=== PATIENT | female | born 1930 | race Caucasian/White ===

== ENCOUNTER → 2017-01-26 | Outpatient (CLI) | payer MEDICARE ==
[~2017-01-26] MED LIST: ALBU8.5H3 PO; ALLO100T30 PO; ATEN100T PO; ATEN50TA41; CEPH-367 PO; DOXY100C26; ESTR42.53 TP; FEXO180T72 PO; FLUT12AE INH; FURO20TA3 PO; FURO40TA6 PO; GABA600T PO; HYDR-3138 PO; LEVO88TA4 PO; LIDOCAINE 2% TP; NITR100C57; POTA10TA5 PO; SENN8.6T98 PO; TRAM100T13 PO; TRAZ100T15 PO; VALS80TA3 PO; WARF2.5T73 PO; WARF5TAB PO
== END | disposition home or self-care (01) ==
LOC: LAB 12:47
PROVIDERS: ATTEND Nurse Practitioner Family
DX: I48.2 Chronic atrial fibrillation (principal)
CPT/HCPCS: 36415; 85610

== ENCOUNTER → 2017-03-09 | Outpatient (CLI) | payer MEDICARE ==
[2017-03-09 14:04] LABS: ASPARTATE AMINO TRANSFERASE 20 U/L (15-37); BLOOD UREA NITROGEN 32 mg/dL (7-18)
== END | disposition home or self-care (01) ==
LOC: LAB 12:23
PROVIDERS: ATTEND Internal Medicine Cardiovascular Disease
DX: E03.9 Hypothyroidism, unspecified (principal); G47.33 Obstructive sleep apnea (adult) (pediatric); I10 Essential (primary) hypertension; I34.0 Nonrheumatic mitral (valve) insufficiency; I48.2 Chronic atrial fibrillation
CPT/HCPCS: 36415; 80053; 80061; 81003; 82306; 83036; 84443; 85025; 85610

== ENCOUNTER → 2017-03-14 | Outpatient (CLI) | payer MEDICARE | END | disposition home or self-care (01) | LOC: CFH 15:08 | PROVIDERS: ATTEND Internal Medicine Cardiovascular Disease | DX: I51.7 Cardiomegaly (principal); I50.30 Unspecified diastolic (congestive) heart failure; I48.2 Chronic atrial fibrillation; Z98.890 Other specified postprocedural states | CPT/HCPCS: 36415; 71020; 83880 ==

== ENCOUNTER → 2017-04-11 | Outpatient (CLI) | payer MEDICARE | END | disposition home or self-care (01) | LOC: LAB 15:19 | PROVIDERS: ATTEND Internal Medicine Cardiovascular Disease | DX: I48.2 Chronic atrial fibrillation (principal) | CPT/HCPCS: 36415; 85610 ==

== ENCOUNTER → 2017-04-18 | Outpatient (CLI) | payer MEDICARE ==
[2017-04-18 14:34] LABS: BLOOD UREA NITROGEN 46 mg/dL (7-18)
== END | disposition home or self-care (01) ==
LOC: LAB 14:02
PROVIDERS: ATTEND Internal Medicine Cardiovascular Disease
DX: R06.02 Shortness of breath (principal)
CPT/HCPCS: 36415; 80048

== ENCOUNTER → 2017-05-23 | Outpatient (CLI) | payer MEDICARE | END | disposition home or self-care (01) | LOC: LAB 14:06 | PROVIDERS: ATTEND Internal Medicine Cardiovascular Disease | DX: I48.2 Chronic atrial fibrillation (principal) | CPT/HCPCS: 36415; 85610 ==

== ENCOUNTER → 2017-06-21 | Outpatient (CLI) | payer MEDICARE | END | disposition home or self-care (01) | LOC: CFH 14:08 | PROVIDERS: ATTEND Internal Medicine | DX: Z13.820 Encounter for screening for osteoporosis (principal); M85.88 Other specified disorders of bone density and structure, other site; N95.9 Unspecified menopausal and perimenopausal disorder | CPT/HCPCS: 77080 ==

== ENCOUNTER → 2017-06-21 | Outpatient (CLI) | payer MEDICARE ==
[~2017-06-21] MED LIST changes: -HYDR-3138 PO; +HYDR-3237 PO
[2017-06-21 12:35] LABS: PTH INTACT INTERPRETATION ** Comment **
[2017-06-21 12:56] LABS: PATH.CAST-FLAG NOT PRESENT; SPERM-FLAG NOT PRESENT; SRC-FLAG NOT PRESENT; XTAL-FLAG NOT PRESENT; YLC-FLAG NOT PRESENT
[2017-06-21 12:56] LABS: HEMATOCRIT 41.2 % (34.6-47.8); HEMOGLOBIN 13.7 g/dL (11.7-16.4); WHITE BLOOD COUNT 5.1 x10^3/uL (3.4-10)
[2017-06-21 13:11] LABS: FERRITIN 505.3 ng/mL (8-252)
[2017-06-21 13:17] LABS: BLOOD UREA NITROGEN 41 mg/dL (7-18)
[2017-06-21 13:17] LABS: PARATHYROID HORMONE INTACT 161.6 pg/mL (14-72)
[2017-06-21 13:28] LABS: ASPARTATE AMINO TRANSFERASE 29 U/L (15-37)
== END | disposition home or self-care (01) ==
LOC: LAB 12:28
PROVIDERS: ATTEND Internal Medicine Cardiovascular Disease
DX: E03.9 Hypothyroidism, unspecified (principal); I12.9 Hypertensive chronic kidney disease with stage 1 through stage 4 chronic kidney disease, or unspecified chronic kidney disease; D63.1 Anemia in chronic kidney disease; N18.3 Chronic kidney disease, stage 3 (moderate); I34.0 Nonrheumatic mitral (valve) insufficiency; I48.2 Chronic atrial fibrillation; M10.9 Gout, unspecified; R06.02 Shortness of breath; G47.30 Sleep apnea, unspecified; E66.01 Morbid (severe) obesity due to excess calories; E83.40 Disorders of magnesium metabolism, unspecified; R80.9 Proteinuria, unspecified; E21.3 Hyperparathyroidism, unspecified; E55.9 Vitamin D deficiency, unspecified
CPT/HCPCS: 36415; 80053; 80061; 81001; 82306; 82310; 82570; 82728; 83540; 83550; 83735; 83970; 84100; 84156; 84443; 84550; 85025; 85610

== ENCOUNTER → 2017-08-03 | Outpatient (CLI) | payer MEDICARE ==
[~2017-08-03] MED LIST changes: -ALBU8.5H3 PO; +ALBU8.5H8 PO
== END | disposition home or self-care (01) ==
LOC: LAB 12:14
PROVIDERS: ATTEND Internal Medicine Cardiovascular Disease
DX: I48.2 Chronic atrial fibrillation (principal)
CPT/HCPCS: 36415; 85610

== ENCOUNTER 2017-09-16 06:08 | Inpatient (IN) | payer MEDICARE ==
[~2017-09-16] VITALS: Ht 170.2 cm; Wt 125.6 kg
[2017-09-16] MEDS ORDERED: ASPIRIN 81 MG TABLET CHEW ONE (06:45)
[2017-09-16] MEDS ORDERED: ONDANSETRON 2MG/ML, 2ML ONE (06:45)
[2017-09-16] MEDS ORDERED: morphine SULFATE 10 MG/ML, 1ML ONE (06:45)
[2017-09-16] MEDS ORDERED: SODIUM CHLORIDE FLUSH 10ML SYR IVF ONE (07:00)
[2017-09-16] MEDS ORDERED: ONDANSETRON 2MG/ML, 2ML IVPush ONE (07:00)
[2017-09-16] MEDS ORDERED: ASPIRIN 81 MG TABLET CHEW PO ONE (07:00)
[2017-09-16] MEDS ORDERED: morphine SULFATE 10 MG/ML, 1ML IVPush ONE (07:00)
[2017-09-16 07:07] LABS: HEMATOCRIT 39.6 % (34.6-47.8); HEMOGLOBIN 13.3 g/dL (11.7-16.4); WHITE BLOOD COUNT 9.3 x10^3/uL (3.4-10)
[2017-09-16 07:13] LABS: ASPARTATE AMINO TRANSFERASE 23 U/L (15-37); BLOOD UREA NITROGEN 36 mg/dL (7-18)
[2017-09-16] MEDS ORDERED: CALC0.25 PO (07:15)
[2017-09-16] MEDS ORDERED: ACET-76 PO (07:15)
[2017-09-16] MEDS ORDERED: FERR324T8 PO (07:19)
[2017-09-16] MEDS ORDERED: WHEA1POW5 PO (07:19)
[2017-09-16] MEDS ORDERED: CRAN1CAP12 PO (07:19)
[2017-09-16] MEDS ORDERED: CHOL200074 PO (07:19)
[2017-09-16] MEDS ORDERED: NIAC500T85 PO (07:19)
[2017-09-16] MEDS ORDERED: MAGN84TA6 PO (07:19)
[2017-09-16 07:28] LABS: IS PT STATUS REG ER OR PRE ER? YES
[2017-09-16] MEDS ORDERED: MAALOX/HYOSCYAMINE/LIDOCAINE 45 ML BTL PO ONE (08:00)
[2017-09-16] MEDS ORDERED: MAALOX/HYOSCYAMINE/LIDOCAINE 45 ML BTL ONE (08:17)
[2017-09-16 09:25] VITALS: BP 125/92
[2017-09-16] MEDS ORDERED: PHARMACY MAY ADJ FOR RENAL FX MC PRN (11:00)
[2017-09-16] MEDS ORDERED: MAALOX/HYOSCYAMINE/LIDOCAINE 45 ML BTL PO PRN (11:00)
[2017-09-16] MEDS ORDERED: ONDANSETRON ODT 4 MG PO PRN (11:00)
[2017-09-16] MEDS ORDERED: NITROGLYCERIN 0.4 MG BOTTLE (25 TABS) SL PRN (11:00)
[2017-09-16] MEDS ORDERED: ONDANSETRON 2MG/ML, 2ML IVPush PRN (11:00)
[2017-09-16] MEDS ORDERED: BISACODYL 10 MG SUPP PR PRN (11:00)
[2017-09-16] MEDS ORDERED: morphine SULFATE 10 MG/ML, 1ML IVPush PRN (11:00)
[2017-09-16] MEDS ORDERED: DOCUSATE 100 MG CAPSULE PO PRN (11:00)
[2017-09-16 11:55] LABS: C-REACTIVE PROTEIN, QUANT 3.8 mg/dL (0.02-0.49)
[2017-09-16 11:57] LABS: IS PT STATUS REG ER OR PRE ER? NO
[2017-09-16] MEDS: PANTOPRAZOLE 40 MG IV IVPush SCH (12:46)
[2017-09-16] MEDS: ESTRADIOL MC SCH ×2 (13:24→19:30)
[2017-09-16] MEDS: METHOCARBAMOL 500 MG TABLET PO SCH ×3 (13:24→21:42)
[2017-09-16 15:40] VITALS: BP 121/70
[2017-09-16] MEDS: CEFTRIAXONE PMX 1GM/50ML 50 ML IV SCH (17:51)
[2017-09-16] MEDS ORDERED: WARFARIN 3 MG TABLET PO-COUM SCH (18:00)
[2017-09-16] MEDS ORDERED: ALBUTEROL SULFATE 2.5 MG/3 ML NPPB PRN (18:30)
[2017-09-16 18:51] VITALS: BP 116/72
[2017-09-16 19:30] LABS: IS PT STATUS REG ER OR PRE ER? NO
[2017-09-16] MEDS: POTASSIUM CHLORIDE 10 MEQ TABLET.ER PO SCH (21:00)
[2017-09-16] MEDS ORDERED: FUROSEMIDE 20 MG TABLET PO SCH (21:00)
[2017-09-16] MEDS: SODIUM CHLORIDE FLUSH 10ML SYR IVF SCH (21:42)
[2017-09-16] MEDS: GABAPENTIN 300 MG CAPSULE PO SCH (21:42)
[2017-09-16] MEDS: ASCORBIC ACID 500 MG TABLET PO SCH (21:42)
[2017-09-17] MEDS: PANTOPRAZOLE 40 MG IV IVPush SCH ×2 (00:33→12:55)
[2017-09-17 03:11] VITALS: BP 114/73
[2017-09-17] MEDS: ASPIRIN 325 MG TABLET EC PO SCH ×2 (05:21→10:44)
[2017-09-17] MEDS: METHOCARBAMOL 500 MG TABLET PO SCH ×4 (05:22→21:48)
[2017-09-17 05:30] LABS: HEMATOCRIT 38.6 % (34.6-47.8); WHITE BLOOD COUNT 14.5 x10^3/uL (3.4-10)
[2017-09-17 05:31] LABS: ASPARTATE AMINO TRANSFERASE 18 U/L (15-37); BLOOD UREA NITROGEN 42 mg/dL (7-18)
[2017-09-17 07:32] VITALS: BP 123/73
[2017-09-17] MEDS ORDERED: REGADENOSON 0.4 MG/5 ML SYRINGE ONE (08:12)
[2017-09-17] MEDS ORDERED: LORATADINE 10 MG TABLET PO SCH (09:00)
[2017-09-17] MEDS ORDERED: CEPHALEXIN 250 MG CAPSULE PO SCH (09:00)
[2017-09-17] MEDS ORDERED: METOPROLOL TARTRATE 50 MG TABLET PO SCH (09:00)
[2017-09-17] MEDS ORDERED: FUROSEMIDE 40 MG TABLET PO SCH (09:00)
[2017-09-17] MEDS ORDERED: ATENOLOL 100 MG TABLET PO SCH (09:00)
[2017-09-17] MEDS: CHOLECALCIFEROL 1,000 UNIT TABLET PO SCH (10:44)
[2017-09-17] MEDS: GABAPENTIN 300 MG CAPSULE PO SCH ×2 (10:44→21:48)
[2017-09-17] MEDS: ASCORBIC ACID 500 MG TABLET PO SCH ×2 (10:44→21:48)
[2017-09-17] MEDS: ALLOPURINOL 100 MG TABLET PO SCH (10:45)
[2017-09-17] MEDS: FERROUS SULFATE 325 MG TABLET PO SCH (10:45)
[2017-09-17] MEDS: LEVOTHYROXINE 88 MCG TABLET PO SCH (10:46)
[2017-09-17] MEDS: SODIUM CHLORIDE FLUSH 10ML SYR IVF SCH ×2 (10:47→21:47)
[2017-09-17] MEDS: POTASSIUM CHLORIDE 10 MEQ TABLET.ER PO SCH ×2 (10:47→21:47)
[2017-09-17] MEDS: MAGNESIUM OXIDE 400 MG TABLET PO SCH ×2 (10:51→21:48)
[2017-09-17 10:53] VITALS: BP 95/53
[2017-09-17] MEDS: PSYLLIUM PACKET PO SCH (11:56)
[2017-09-17] MEDS: FUROSEMIDE 40 MG/4 ML IV SCH (12:55)
[2017-09-17] MEDS: FLUTICASONE FUROATE 100MCG/INH INH SCH (12:55)
[2017-09-17 14:16] VITALS: BP 97/65
[2017-09-17] MEDS: CEFTRIAXONE PMX 1GM/50ML 50 ML IV SCH (17:48)
[2017-09-17] MEDS ORDERED: WARFARIN 3 MG TABLET PO-COUM SCH (18:00)
[2017-09-17 19:16] VITALS: BP 104/71
[2017-09-17] MEDS: METOPROLOL TARTRATE 25 MG TABLET PO SCH (21:48)
[2017-09-18] MEDS: PANTOPRAZOLE 40 MG IV IVPush SCH ×2 (00:44→12:08)
[2017-09-18 02:36] VITALS: BP 105/70
[2017-09-18] MEDS: LEVOTHYROXINE 88 MCG TABLET PO SCH (06:00)
[2017-09-18] MEDS: METHOCARBAMOL 500 MG TABLET PO SCH ×4 (06:06→20:22)
[2017-09-18] MEDS: METOPROLOL TARTRATE 25 MG TABLET PO SCH ×2 (06:06→17:19)
[2017-09-18 08:00] VITALS: BP 120/75
[2017-09-18 08:00] LABS: HEMATOCRIT 35.7 % (34.6-47.8); HEMOGLOBIN 12.1 g/dL (11.7-16.4); WHITE BLOOD COUNT 11.6 x10^3/uL (3.4-10)
[2017-09-18 08:11] LABS: BLOOD UREA NITROGEN 52 mg/dL (7-18)
[2017-09-18] MEDS ORDERED: ACETAMINOPHEN 325 MG TABLET ONE (09:35)
[2017-09-18] MEDS: FUROSEMIDE 40 MG/4 ML IV SCH (09:42)
[2017-09-18] MEDS: SODIUM CHLORIDE FLUSH 10ML SYR IVF SCH ×2 (09:42→20:20)
[2017-09-18] MEDS: FLUTICASONE FUROATE 100MCG/INH INH SCH (09:47)
[2017-09-18] MEDS: MAGNESIUM OXIDE 400 MG TABLET PO SCH ×2 (09:49→20:21)
[2017-09-18] MEDS: POTASSIUM CHLORIDE 10 MEQ TABLET.ER PO SCH ×2 (09:49→20:20)
[2017-09-18] MEDS: CALCITRIOL 0.25 MCG CAPSULE PO SCH (09:49)
[2017-09-18] MEDS: ASCORBIC ACID 500 MG TABLET PO SCH ×2 (09:49→20:22)
[2017-09-18] MEDS: GABAPENTIN 300 MG CAPSULE PO SCH ×2 (09:50→20:21)
[2017-09-18] MEDS: CHOLECALCIFEROL 1,000 UNIT TABLET PO SCH (09:51)
[2017-09-18] MEDS: ALLOPURINOL 100 MG TABLET PO SCH (09:51)
[2017-09-18] MEDS: ACETAMINOPHEN 500 MG TABLET PO PRN (09:53)
[2017-09-18] MEDS: PSYLLIUM PACKET PO SCH (09:56)
[2017-09-18] MEDS: FERROUS SULFATE 325 MG TABLET PO SCH (12:06)
[2017-09-18] MEDS ORDERED: HOLD COUMADIN MC PRN (14:30)
[2017-09-18 15:17] VITALS: BP 115/72
[2017-09-18 15:30] VITALS: BP 99/65
[2017-09-18] MEDS: CEFTRIAXONE PMX 1GM/50ML 50 ML IV SCH (17:19)
[2017-09-18 17:25] VITALS: BP 122/64
[2017-09-18 18:36] VITALS: BP 103/67
[2017-09-18] MEDS: GUAIFENESIN 200 MG TABLET PO SCH (20:21)
[2017-09-19] MEDS: PANTOPRAZOLE 40 MG IV IVPush SCH ×2 (00:10→11:42)
[2017-09-19 01:00] VITALS: BP 108/73
[2017-09-19 05:16] LABS: HEMATOCRIT 35.6 % (34.6-47.8); HEMOGLOBIN 11.8 g/dL (11.7-16.4); WHITE BLOOD COUNT 9.4 x10^3/uL (3.4-10)
[2017-09-19 05:19] LABS: ASPARTATE AMINO TRANSFERASE 32 U/L (15-37); BLOOD UREA NITROGEN 56 mg/dL (7-18)
[2017-09-19 05:44] VITALS: BP 123/54
[2017-09-19] MEDS: ASPIRIN 81 MG TABLET EC PO SCH (05:47)
[2017-09-19] MEDS: GUAIFENESIN 200 MG TABLET PO SCH ×4 (05:48→21:23)
[2017-09-19] MEDS: LEVOTHYROXINE 88 MCG TABLET PO SCH (05:48)
[2017-09-19] MEDS: METHOCARBAMOL 500 MG TABLET PO SCH ×4 (05:48→21:23)
[2017-09-19] MEDS: METOPROLOL TARTRATE 25 MG TABLET PO SCH ×2 (05:48→17:40)
[2017-09-19] MEDS ORDERED: PHYTONADIONE 10 MG in SODIUM CHLORIDE 0.9% 50 ML IV ONE (06:00)
[2017-09-19] MEDS ORDERED: HOLD COUMADIN MC PRN (08:00)
[2017-09-19 08:50] VITALS: BP 134/82
[2017-09-19] MEDS ORDERED: ESTRACE VAG HOMEVAG SCH (09:00)
[2017-09-19] MEDS ORDERED: ACETAMINOPHEN 325 MG TABLET ONE (09:57)
[2017-09-19] MEDS: FLUTICASONE FUROATE 100MCG/INH INH SCH (10:14)
[2017-09-19] MEDS: FUROSEMIDE 40 MG/4 ML IV SCH (10:19)
[2017-09-19] MEDS: SODIUM CHLORIDE FLUSH 10ML SYR IVF SCH ×2 (10:22→21:24)
[2017-09-19] MEDS: GABAPENTIN 300 MG CAPSULE PO SCH ×2 (10:22→21:23)
[2017-09-19] MEDS: CHOLECALCIFEROL 1,000 UNIT TABLET PO SCH (10:22)
[2017-09-19] MEDS: ALLOPURINOL 100 MG TABLET PO SCH (10:22)
[2017-09-19] MEDS: MAGNESIUM OXIDE 400 MG TABLET PO SCH ×2 (10:23→21:23)
[2017-09-19] MEDS: ASCORBIC ACID 500 MG TABLET PO SCH ×2 (10:23→21:23)
[2017-09-19] MEDS: POTASSIUM CHLORIDE 10 MEQ TABLET.ER PO SCH ×2 (10:23→21:23)
[2017-09-19] MEDS: PSYLLIUM PACKET PO SCH (10:27)
[2017-09-19] MEDS: ACETAMINOPHEN 500 MG TABLET PO PRN (10:28)
[2017-09-19] MEDS: FERROUS SULFATE 325 MG TABLET PO SCH (10:37)
[2017-09-19 13:57] VITALS: BP 110/73
[2017-09-19] MEDS: CEFTRIAXONE PMX 1GM/50ML 50 ML IV SCH (14:54)
[2017-09-19 19:18] VITALS: BP 106/74
[2017-09-20 00:27] VITALS: BP 125/81
[2017-09-20] MEDS: PANTOPRAZOLE 40 MG IV IVPush SCH (01:25)
[2017-09-20 04:53] LABS: HEMATOCRIT 36.3 % (34.6-47.8); HEMOGLOBIN 12.1 g/dL (11.7-16.4); WHITE BLOOD COUNT 8.3 x10^3/uL (3.4-10)
[2017-09-20 05:11] LABS: ASPARTATE AMINO TRANSFERASE 27 U/L (15-37); BLOOD UREA NITROGEN 59 mg/dL (7-18)
[2017-09-20] MEDS: LEVOTHYROXINE 88 MCG TABLET PO SCH (06:00)
[2017-09-20 06:32] VITALS: BP 129/87
[2017-09-20] MEDS: GUAIFENESIN 200 MG TABLET PO SCH ×3 (06:41→16:25)
[2017-09-20] MEDS: METHOCARBAMOL 500 MG TABLET PO SCH ×3 (06:42→16:25)
[2017-09-20] MEDS: ASPIRIN 81 MG TABLET EC PO SCH (06:42)
[2017-09-20] MEDS: METOPROLOL TARTRATE 25 MG TABLET PO SCH ×2 (06:42→17:47)
[2017-09-20] MEDS: FLUTICASONE FUROATE 100MCG/INH INH SCH (08:12)
[2017-09-20] MEDS: CALCITRIOL 0.25 MCG CAPSULE PO SCH (08:13)
[2017-09-20] MEDS: FERROUS SULFATE 325 MG TABLET PO SCH (08:13)
[2017-09-20] MEDS: ASCORBIC ACID 500 MG TABLET PO SCH (08:13)
[2017-09-20] MEDS: GABAPENTIN 300 MG CAPSULE PO SCH (08:14)
[2017-09-20] MEDS: POTASSIUM CHLORIDE 10 MEQ TABLET.ER PO SCH (08:14)
[2017-09-20] MEDS: CHOLECALCIFEROL 1,000 UNIT TABLET PO SCH (08:14)
[2017-09-20] MEDS: SODIUM CHLORIDE FLUSH 10ML SYR IVF SCH (08:14)
[2017-09-20] MEDS: ALLOPURINOL 100 MG TABLET PO SCH (08:14)
[2017-09-20] MEDS: FUROSEMIDE 40 MG/4 ML IV SCH (08:15)
[2017-09-20] MEDS: PSYLLIUM PACKET PO SCH (08:16)
[2017-09-20] MEDS: MAGNESIUM OXIDE 400 MG TABLET PO SCH (08:32)
[2017-09-20] MEDS ORDERED: PANTOPROZOLE 40MG TABLET PO SCH (12:30)
[2017-09-20] MEDS: CEFTRIAXONE PMX 1GM/50ML 50 ML IV SCH (14:38)
[2017-09-20] MEDS ORDERED: GUAI200T3 PO (14:58)
[2017-09-20] MEDS ORDERED: METO25TA35 PO (14:58)
[2017-09-20] MEDS ORDERED: PANT40TA5 PO (14:58)
[2017-09-20] MEDS ORDERED: CEFD300C37 PO (14:59)
[2017-09-20 15:23] VITALS: BP 131/81
[2017-09-20] MEDS ORDERED: WARFARIN 5 MG TABLET PO-COUM ONE (18:00)
[2017-09-21] MEDS ORDERED: SULF1TAB24 PO (09:50)
== END 2017-09-20 18:00 | disposition home health service (06) | DRG 291 ==
LOC: ED 06:18 → EDIP 07:44 → 5SO 09:07
PROVIDERS: ADMIT Internal Medicine; ATTEND Internal Medicine
PROC: 5A09357 Assistance with Respiratory Ventilation, Less than 24 Consecutive Hours, Continuous Positive Airway Pressure (ICD-10-PCS; principal; 2017-09-17)
PROC: 5A09357 Assistance with Respiratory Ventilation, Less than 24 Consecutive Hours, Continuous Positive Airway Pressure (ICD-10-PCS; 2017-09-19)
DX: I13.0 Hypertensive heart and chronic kidney disease with heart failure and stage 1 through stage 4 chronic kidney disease, or unspecified chronic kidney disease (principal); J96.01 Acute respiratory failure with hypoxia; I71.00 Dissection of unspecified site of aorta; E44.0 Moderate protein-calorie malnutrition; D68.59 Other primary thrombophilia; G62.9 Polyneuropathy, unspecified; N18.4 Chronic kidney disease, stage 4 (severe); E66.01 Morbid (severe) obesity due to excess calories; I27.20 Pulmonary hypertension, unspecified; I50.30 Unspecified diastolic (congestive) heart failure; Z68.41 Body mass index [BMI] 40.0-44.9, adult; R07.89 Other chest pain; I48.2 Chronic atrial fibrillation; I08.1 Rheumatic disorders of both mitral and tricuspid valves; E78.5 Hyperlipidemia, unspecified; E03.9 Hypothyroidism, unspecified; J44.9 Chronic obstructive pulmonary disease, unspecified; D50.9 Iron deficiency anemia, unspecified; L30.9 Dermatitis, unspecified; M10.9 Gout, unspecified; M19.90 Unspecified osteoarthritis, unspecified site; Z66 Do not resuscitate; I35.1 Nonrheumatic aortic (valve) insufficiency; Z77.22 Contact with and (suspected) exposure to environmental tobacco smoke (acute) (chronic); D72.829 Elevated white blood cell count, unspecified; G47.33 Obstructive sleep apnea (adult) (pediatric); Z86.73 Personal history of transient ischemic attack (TIA), and cerebral infarction without residual deficits; Z79.01 Long term (current) use of anticoagulants; Z79.82 Long term (current) use of aspirin; Z79.899 Other long term (current) drug therapy; Z87.440 Personal history of urinary (tract) infections
CPT/HCPCS: 36415; 71010; 78452; 80048; 80053; 80061; 81001; 82040; 83605; 83735; 83880; 84443; 84484; 85025; 85610; 85651; 86140; 86677; 87077; 87086; 87186; 93005; 93017; 93306; 93922; 96374; 96375; J0696; J1940; J2405; J2785; J3430; A9502; C9113; C9898; J2270

== ENCOUNTER → 2017-09-23 | Outpatient (CLI) | payer MEDICARE ==
[~2017-09-23] MED LIST changes: +ACET-76 PO; +CALC0.25 PO; +CEFD300C37 PO; +CHOL200074 PO; +CRAN1CAP12 PO; +FERR324T8 PO; +GUAI200T3 PO; +MAGN84TA6 PO; +METO25TA35 PO; +NIAC500T85 PO; +PANT40TA5 PO; +SULF1TAB24 PO; +WHEA1POW5 PO
[2017-09-23 15:22] LABS: BLOOD UREA NITROGEN 33 mg/dL (7-18)
== END | disposition home or self-care (01) ==
LOC: LAB 14:39
PROVIDERS: ATTEND Hospitalist
DX: Z00.01 Encounter for general adult medical examination with abnormal findings (principal)
CPT/HCPCS: 36415; 80048; 83735

== ENCOUNTER → 2017-11-21 | Outpatient (CLI) | payer MEDICARE ==
[~2017-11-21] MED LIST changes: +ASPI325T17 PO
== END | disposition home or self-care (01) ==
LOC: CFH 11:49
PROVIDERS: ATTEND Nurse Practitioner
DX: J90 Pleural effusion, not elsewhere classified (principal)
CPT/HCPCS: 71046

== ENCOUNTER → 2017-11-29 | Outpatient (CLI) | payer MEDICARE ==
[2017-11-29 15:05] LABS: BASOPHILS # (AUTO) 0.02 x10^3/uL (0-0.1); BASOPHILS % (AUTO) 0 % (0-1); EOSINOPHILS # (AUTO) 0.15 x10^3/uL (0-0.4); EOSINOPHILS % (AUTO) 2 % (1-7); LYMPHOCYTES # (AUTO) 1.18 x10^3/uL (1-3.4); LYMPHOCYTES % (AUTO) 15 % (22-44); MD NO; MEAN CORPUSCULAR HEMOGLOBIN 32.1 pg (27.0-34.8); MEAN CORPUSCULAR HGB CONC 31.8 g/dL (32.4-35.8); MEAN PLATELET VOLUME 8.3 fL (7.4-10.4); MONOCYTES # (AUTO) 0.56 x10^3/uL (0.2-0.8); MONOCYTES % (AUTO) 7 % (2-9); NEUTROPHILS % (AUTO) 76 % (42-75); PLATELET COUNT 315 x10^3/uL (130-400); RED BLOOD COUNT 3.72 x10^6/uL (3.82-5.3); RED CELL DISTRIBUTION WIDTH 16.5 % (9.6-15.2)
[2017-11-29 15:13] LABS: MICROSCOPIC INDICATED
[2017-11-29 15:17] LABS: CALCIUM 10.2 mg/dL (8.5-10.1)
[2017-11-29 15:18] LABS: ANION GAP 9 mmol/L (5-15); CALCIUM 9.7 mg/dL (8.5-10.1); CHLORIDE 98 mmol/L (98-107)
[2017-11-29 15:23] LABS: ALANINE AMINOTRANSFERASE 12 U/L (12-78); ALKALINE PHOSPHATASE 74 U/L (45-117); BILIRUBIN,TOTAL 0.7 mg/dL (0.2-1.0); TOTAL PROTEIN 8.5 g/dL (6.4-8.2)
[2017-11-29 15:36] LABS: CREATININE,URINE RANDOM 82.4 mg/dL
== END | disposition home or self-care (01) ==
LOC: LAB 13:44
PROVIDERS: ATTEND Nurse Practitioner
DX: E21.3 Hyperparathyroidism, unspecified (principal); D64.9 Anemia, unspecified; I25.10 Atherosclerotic heart disease of native coronary artery without angina pectoris; I13.0 Hypertensive heart and chronic kidney disease with heart failure and stage 1 through stage 4 chronic kidney disease, or unspecified chronic kidney disease; I50.9 Heart failure, unspecified; N18.3 Chronic kidney disease, stage 3 (moderate); M19.90 Unspecified osteoarthritis, unspecified site; R80.9 Proteinuria, unspecified; I48.0 Paroxysmal atrial fibrillation; Z79.01 Long term (current) use of anticoagulants; E03.9 Hypothyroidism, unspecified; E55.9 Vitamin D deficiency, unspecified; G47.33 Obstructive sleep apnea (adult) (pediatric); I63.9 Cerebral infarction, unspecified; M10.9 Gout, unspecified; I73.9 Peripheral vascular disease, unspecified
CPT/HCPCS: 36415; 80053; 81001; 82306; 82310; 82570; 83735; 83970; 84100; 84156; 84550; 85025

== ENCOUNTER → 2018-01-16 | Outpatient (CLI) | payer MEDICARE ==
[2018-01-16 15:28] LABS: ALANINE AMINOTRANSFERASE 12 U/L (12-78); ALBUMIN 3.4 g/dL (3.4-5.0); ANION GAP 6 mmol/L (5-15); CHLORIDE 102 mmol/L (98-107); CREATININE 1.33 mg/dL (0.55-1.02)
[2018-01-16 15:30] LABS: ALKALINE PHOSPHATASE 61 U/L (45-117); BILIRUBIN,TOTAL 0.6 mg/dL (0.2-1.0); TOTAL PROTEIN 8.8 g/dL (6.4-8.2)
== END | disposition home or self-care (01) ==
LOC: LAB 14:49 → EDBD 14:49
PROVIDERS: ATTEND Internal Medicine
DX: E03.9 Hypothyroidism, unspecified (principal); G47.33 Obstructive sleep apnea (adult) (pediatric); I10 Essential (primary) hypertension; I34.0 Nonrheumatic mitral (valve) insufficiency; I48.2 Chronic atrial fibrillation
CPT/HCPCS: 36415; 80053

== ENCOUNTER → 2018-01-17 | Outpatient (CLI) | payer MEDICARE | END | disposition home or self-care (01) | LOC: CFH 12:46 | PROVIDERS: ATTEND Nurse Practitioner Family | DX: J90 Pleural effusion, not elsewhere classified (principal); I10 Essential (primary) hypertension; I48.2 Chronic atrial fibrillation; I51.7 Cardiomegaly | CPT/HCPCS: 71046 ==

== ENCOUNTER → 2018-05-01 | Outpatient (CLI) | payer MEDICARE ==
[~2018-05-01] MED LIST changes: +OMNIPAQUE 350 MG/ML, 150 ML BOTTLE ONE
== END | disposition home or self-care (01) ==
LOC: CFH 09:25
PROVIDERS: ATTEND Nurse Practitioner Family
DX: N28.1 Cyst of kidney, acquired (principal); I70.0 Atherosclerosis of aorta; R91.1 Solitary pulmonary nodule; K76.0 Fatty (change of) liver, not elsewhere classified; E11.22 Type 2 diabetes mellitus with diabetic chronic kidney disease; N18.3 Chronic kidney disease, stage 3 (moderate); I50.9 Heart failure, unspecified
CPT/HCPCS: 74177; 82565; Q9967

== ENCOUNTER → 2018-08-07 | Outpatient (CLI) | payer MEDICARE ==
[~2018-08-07] MED LIST changes: -OMNIPAQUE 350 MG/ML, 150 ML BOTTLE ONE; +TRAZ-137 PO; -TRAZ100T15 PO
[2018-08-07 09:53] LABS: ALANINE AMINOTRANSFERASE 27 U/L (12-78); ALBUMIN 3.6 g/dL (3.4-5.0); ANION GAP 5 mmol/L (5-15); CALCIUM 9.8 mg/dL (8.5-10.1); CHLORIDE 105 mmol/L (98-107); CREATININE 1.46 mg/dL (0.55-1.02)
[2018-08-07 10:05] LABS: ALKALINE PHOSPHATASE 91 U/L (45-117); BILIRUBIN,TOTAL 0.7 mg/dL (0.2-1.0); CHOL/HDL RATIO 2.2; CHOLESTEROL, TOTAL 128 mg/dL (140-239); HDL CHOL % 46 % (28-40); HDL CHOLESTEROL (DIRECT) 59 mg/dL (40-60); LDL CHOLESTEROL,CALCULATED 53 mg/dL (54-169); LDL/HDL RATIO 0.9 (0.5-3.0); TOTAL PROTEIN 8.4 g/dL (6.4-8.2); TRIGLYCERIDES 81 mg/dL (50-200); VLDL CHOLESTEROL 16 mg/dL (0-25)
== END | disposition home or self-care (01) ==
LOC: LAB 09:18
PROVIDERS: ATTEND Internal Medicine
DX: I12.9 Hypertensive chronic kidney disease with stage 1 through stage 4 chronic kidney disease, or unspecified chronic kidney disease (principal); N18.3 Chronic kidney disease, stage 3 (moderate); I48.0 Paroxysmal atrial fibrillation; E03.9 Hypothyroidism, unspecified; G47.33 Obstructive sleep apnea (adult) (pediatric)
CPT/HCPCS: 36415; 80053; 80061; 84443

== ENCOUNTER → 2018-12-25 | Outpatient (CLI) | payer MEDICARE ==
[~2018-12-25] MED LIST changes: +WARF2.5T32 PO; -WARF2.5T73 PO
[2018-12-25 10:59] LABS: BASOPHILS # (AUTO) 0.03 x10^3/uL (0-0.1); BASOPHILS % (AUTO) 0 % (0-1); EOSINOPHILS # (AUTO) 0.18 x10^3/uL (0-0.4); EOSINOPHILS % (AUTO) 3 % (1-7); LYMPHOCYTES # (AUTO) 1.42 x10^3/uL (1-3.4); LYMPHOCYTES % (AUTO) 20 % (22-44); MD NO; MEAN CORPUSCULAR HEMOGLOBIN 32.1 pg (27.0-34.8); MEAN CORPUSCULAR HGB CONC 32.5 g/dL (32.4-35.8); MEAN CORPUSCULAR VOLUME 98.9 fL (80-100); MEAN PLATELET VOLUME 8.1 fL (7.4-10.4); MONOCYTES # (AUTO) 0.53 x10^3/uL (0.2-0.8); MONOCYTES % (AUTO) 8 % (2-9); NEUTROPHILS # (AUTO) 4.92 x10^3/uL (1.8-6.8); NEUTROPHILS % (AUTO) 70 % (42-75); PLATELET COUNT 200 x10^3/uL (130-400); RED BLOOD COUNT 3.97 x10^6/uL (3.82-5.3); RED CELL DISTRIBUTION WIDTH 14.9 % (9.6-15.2)
[2018-12-25 11:09] LABS: ANION GAP 6 mmol/L (5-15); CALCIUM 9.2 mg/dL (8.5-10.1); CHLORIDE 104 mmol/L (98-107); CREATININE 1.71 mg/dL (0.55-1.02)
[2018-12-25 11:10] LABS: MICROSCOPIC INDICATED
== END | disposition home or self-care (01) ==
LOC: LAB 10:34
PROVIDERS: ATTEND Nurse Practitioner Family
DX: I13.0 Hypertensive heart and chronic kidney disease with heart failure and stage 1 through stage 4 chronic kidney disease, or unspecified chronic kidney disease (principal); I50.9 Heart failure, unspecified; N18.4 Chronic kidney disease, stage 4 (severe); I48.0 Paroxysmal atrial fibrillation; E03.9 Hypothyroidism, unspecified; E21.3 Hyperparathyroidism, unspecified; E78.5 Hyperlipidemia, unspecified; E55.9 Vitamin D deficiency, unspecified; M10.9 Gout, unspecified; G47.33 Obstructive sleep apnea (adult) (pediatric); I73.9 Peripheral vascular disease, unspecified; N26.1 Atrophy of kidney (terminal); Z87.440 Personal history of urinary (tract) infections; Z86.2 Personal history of diseases of the blood and blood-forming organs and certain disorders involving the immune mechanism; Z79.01 Long term (current) use of anticoagulants; Z79.899 Other long term (current) drug therapy
CPT/HCPCS: 36415; 80048; 81001; 82306; 82330; 83970; 84550; 85025; 85027; 87077; 87086; 87186

== ENCOUNTER → 2019-02-26 | Outpatient (CLI) | payer MEDICARE | END | disposition home or self-care (01) | LOC: CVU 09:23 | PROVIDERS: ATTEND Internal Medicine Cardiovascular Disease | DX: I08.8 Other rheumatic multiple valve diseases (principal); I48.91 Unspecified atrial fibrillation | CPT/HCPCS: 93306 ==

== ENCOUNTER → 2019-10-08 | Outpatient (CLI) | payer MEDICARE ==
[~2019-10-08] MED LIST changes: -GUAI200T3 PO; +GUAI200T37 PO
[2019-10-08 11:49] LABS: BASOPHILS # (AUTO) 0.05 x10^3/uL (0-0.1); BASOPHILS % (AUTO) 1 % (0-1); EOSINOPHILS # (AUTO) 0.42 x10^3/uL (0-0.4); EOSINOPHILS % (AUTO) 5 % (1-7); LYMPHOCYTES % (AUTO) 17 % (22-44); MD NO; MEAN CORPUSCULAR HEMOGLOBIN 32.2 pg (27.0-34.8); MEAN CORPUSCULAR HGB CONC 32.1 g/dL (32.4-35.8); MEAN CORPUSCULAR VOLUME 100.5 fL (80-100); MEAN PLATELET VOLUME 8.6 fL (7.4-10.4); MONOCYTES # (AUTO) 0.72 x10^3/uL (0.2-0.8); MONOCYTES % (AUTO) 8 % (2-9); NEUTROPHILS # (AUTO) 6.15 x10^3/uL (1.8-6.8); NEUTROPHILS % (AUTO) 70 % (42-75); PLATELET COUNT 206 x10^3/uL (130-400); RED BLOOD COUNT 4.21 x10^6/uL (3.82-5.3); RED CELL DISTRIBUTION WIDTH 15.3 % (9.6-15.2)
[2019-10-08 12:02] LABS: MICROSCOPIC INDICATED
[2019-10-08 12:23] LABS: CALCIUM 10.4 mg/dL (8.5-10.1)
[2019-10-08 12:28] LABS: ALBUMIN 3.6 g/dL (3.4-5.0); ANION GAP 9 mmol/L (5-15); CALCIUM 10.1 mg/dL (8.5-10.1); CHLORIDE 106 mmol/L (98-107); CREATININE 1.79 mg/dL (0.55-1.02)
[2019-10-08 14:26] LABS: CREATININE,URINE RANDOM 76.9 mg/dL
== END | disposition home or self-care (01) ==
LOC: LAB 11:12
PROVIDERS: ATTEND Internal Medicine Nephrology
DX: R80.9 Proteinuria, unspecified (principal); E21.3 Hyperparathyroidism, unspecified; D64.9 Anemia, unspecified; I12.9 Hypertensive chronic kidney disease with stage 1 through stage 4 chronic kidney disease, or unspecified chronic kidney disease; N18.3 Chronic kidney disease, stage 3 (moderate)
CPT/HCPCS: 36415; 80069; 81001; 82306; 82310; 82570; 83735; 83970; 84156; 84550; 85025

== ENCOUNTER → 2020-01-07 | Outpatient (CLI) | payer MEDICARE ==
[~2020-01-07] MED LIST changes: -TRAZ-137 PO; +TRAZ-175 PO
[2020-01-07 12:44] LABS: MICROSCOPIC INDICATED
[2020-01-07 12:50] LABS: CALCIUM 10.1 mg/dL (8.5-10.1); CREATININE,URINE RANDOM 30.6 mg/dL; MEAN CORPUSCULAR HEMOGLOBIN 32.9 pg (27.0-34.8); MEAN CORPUSCULAR HGB CONC 32.7 g/dL (32.4-35.8); MEAN CORPUSCULAR VOLUME 100.7 fL (80-100); MEAN PLATELET VOLUME 8.3 fL (7.4-10.4); PLATELET COUNT 205 x10^3/uL (130-400); RED BLOOD COUNT 4.07 x10^6/uL (3.82-5.3); RED CELL DISTRIBUTION WIDTH 16.9 % (9.6-15.2)
[2020-01-07 12:51] LABS: ALBUMIN 3.7 g/dL (3.4-5.0); ANION GAP 7 mmol/L (5-15); CHLORIDE 107 mmol/L (98-107); CREATININE 1.37 mg/dL (0.55-1.02)
[2020-01-07 13:32] LABS: BASOPHILS # (AUTO) 0.05 x10^3/uL (0-0.1); BASOPHILS % (AUTO) 1 % (0-1); EOSINOPHILS # (AUTO) 0.23 x10^3/uL (0-0.4); EOSINOPHILS % (AUTO) 3 % (1-7); LYMPHOCYTES # (AUTO) 1.33 x10^3/uL (1-3.4); LYMPHOCYTES % (AUTO) 20 % (22-44); MD NO; MONOCYTES # (AUTO) 0.54 x10^3/uL (0.2-0.8); MONOCYTES % (AUTO) 8 % (2-9); NEUTROPHILS # (AUTO) 4.63 x10^3/uL (1.8-6.8); NEUTROPHILS % (AUTO) 68 % (42-75)
== END | disposition home or self-care (01) ==
LOC: LAB 12:02
PROVIDERS: ATTEND Internal Medicine Nephrology
DX: E21.3 Hyperparathyroidism, unspecified (principal); N18.3 Chronic kidney disease, stage 3 (moderate); R80.9 Proteinuria, unspecified
CPT/HCPCS: 36415; 80069; 81001; 82306; 82310; 82570; 83970; 84156; 85025